=== PATIENT | female | born 1995 | race Caucasian/White ===

== ENCOUNTER 2016-12-17 10:44 | Emergency (ER) | payer MEDICAID ==
[~2016-12-17] VITALS: Ht 157.5 cm; Wt 90.9 kg
[2016-12-17 11:24] LABS: BASO % 0.6 % (0.0-2.0); EOS % 0.6 % (0-4.0); GRAN # 4.8 (1.4-6.5); GRAN % 67.4 % (42.2-75.2); HEMATOCRIT 38.4 % (37.0-47.0); HEMOGLOBIN 12.8 g/dl (12.5-16.0); LYMPH # 1.6 (1.2-3.4); LYMPH % 22.4 % (20.0-51.0); MEAN CELL VOLUME 87 fl (80.0-100.0); MEAN CORPUSCULAR HEMOGLOBIN 29 pg (27.0-31.0); MEAN CORPUSCULAR HGB CONC 33 g/dl (33.0-37.0); MEAN PLATELET VOLUME 9.8 fl (7.4-10.4); MONO # 0.6 (0.1-0.6); MONO % 8.7 % (1.7-9.3); PLATELET COUNT 298 K/mm3 (130-400); REDCELL DISTRIBUTION WIDTH-CV 12.3 % (11.5-14.5); WHITE BLOOD COUNT 7.1 K/mm3 (4.8-10.8)
[2016-12-17 11:31] LABS: ADJUSTED CALCIUM 9.1 mg/dL (8.4-10.2); ALBUMIN 4.4 gm/dL (3.5-5.0); BILIRUBIN,TOTAL 0.6 mg/dL (0.0-1.0); CALCIUM 9.4 mg/dL (8.4-10.2); CREATININE, serum 0.64 mg/dL (0.52-1.25); POTASSIUM 3.2 mmol/L (3.4-5.0)
[2016-12-17] MEDS ORDERED: PHENERGAN 25 TA25 MG PO (13:20)
[2016-12-17] MEDS ORDERED: PEPCID 20MG TAB20 MG PO (13:20)
[2016-12-17 13:44] VITALS: BP 125/73; PULSE 85; TEMP 97.9
== END 2016-12-17 14:00 | disposition home or self-care (01) ==
LOC: COL.ER 10:44
PROVIDERS: Emergency Medicine
DX: O26.891 Other specified pregnancy related conditions, first trimester (principal); O21.9 Vomiting of pregnancy, unspecified; R10.13 Epigastric pain; Z3A.00 Weeks of gestation of pregnancy not specified
CPT/HCPCS: J2550; J7030

== ENCOUNTER 2017-05-10 06:45 | Observation (INO) | payer MEDICAID ==
[~2017-05-10] VITALS: Wt 96.4 kg
[~2017-05-10 06:45] MED LIST: PEPCID 20MG TAB20 MG PO; PHENERGAN 25 TA25 MG PO
[2017-05-10 07:08] LABS: COLLECTION METHOD CLEAN CATCH
[2017-05-10 07:28] LABS: MUCOUS Present /lpf; PH 5 (5-8); SQUAMOUS EPITHELIAL 20-50 /hpf; URINE APPEARANCE Cloudy; URINE BACTERIA Rare /hpf; URINE BILIRUBIN Negative (NEGATIVE); URINE BLOOD Negative (NEGATIVE); URINE COLOR Yellow; URINE GLUCOSE Negative (NEGATIVE); URINE KETONE 1+ (NEGATIVE); URINE LEUKOCYTE ESTERASE 2+ (NEGATIVE); URINE NITRATE Negative (NEGATIVE); URINE PROTEIN(semi-quant) Negative (NEGATIVE); URINE UROBILINOGEN Negative (NEGATIVE)
[2017-05-10 07:37] LABS: HEMATOCRIT 35.3 % (37.0-47.0); HEMOGLOBIN 11.9 g/dl (12.5-16.0); MEAN CELL VOLUME 89 fl (80.0-100.0); MEAN CORPUSCULAR HEMOGLOBIN 30 pg (27.0-31.0); MEAN CORPUSCULAR HGB CONC 34 g/dl (33.0-37.0); MEAN PLATELET VOLUME 9.8 fl (7.4-10.4); PLATELET COUNT 286 K/mm3 (130-400); RED BLOOD COUNT 3.96 M/mm3 (4.10-5.30); REDCELL DISTRIBUTION WIDTH-CV 12.2 % (11.5-14.5)
[2017-05-10 07:58] LABS: ALBUMIN 3.9 gm/dL (3.5-5.0); BILIRUBIN,TOTAL 0.4 mg/dL (0.0-1.0); CALCIUM 9.1 mg/dL (8.4-10.2); CREATININE, serum 0.48 mg/dL (0.52-1.25); POTASSIUM 3.7 mmol/L (3.4-5.0); TOTAL PROTEIN 7.6 gm/dL (6.4-8.2)
[2017-05-10 08:02] LABS: BAND 38 % (0-10); LYMPHOCYTE 4 % (20.0-51.0); NEUTROPHILS 51 % (42.0-75.2); PLATELET ESTIMATE NORMAL (NORMAL)
[2017-05-10 12:00] VITALS: BP 128/72; PULSE 88; TEMP 98.7
[2017-05-10 16:30] VITALS: BP 130/60; PULSE 90; TEMP 98.7
[2017-05-10 19:15] VITALS: BP 93/48; PULSE 106; TEMP 98.8
[2017-05-10 21:00] VITALS: BP 104/53; PULSE 108; TEMP 98.6
[2017-05-11] VITALS: BP 101/50; PULSE 106; TEMP 99
[2017-05-11 04:00] VITALS: BP 98/31; PULSE 103; TEMP 99.3
[2017-05-11 07:30] VITALS: BP 106/59; PULSE 102; TEMP 99
[2017-05-11 08:37] LABS: COLLECTION METHOD CLEAN CATCH
[2017-05-11 08:47] LABS: MUCOUS Present /lpf; PH 6 (5-8); URINE APPEARANCE Hazy; URINE BACTERIA Rare /hpf; URINE BILIRUBIN Negative (NEGATIVE); URINE BLOOD Negative (NEGATIVE); URINE COLOR Yellow; URINE GLUCOSE Negative (NEGATIVE); URINE KETONE Negative (NEGATIVE); URINE LEUKOCYTE ESTERASE 2+ (NEGATIVE); URINE NITRATE Negative (NEGATIVE); URINE PROTEIN(semi-quant) Negative (NEGATIVE); URINE UROBILINOGEN Negative (NEGATIVE)
[2017-05-11 08:52] LABS: MEAN CELL VOLUME 91 fl (80.0-100.0); MEAN CORPUSCULAR HGB CONC 33 g/dl (33.0-37.0); MEAN PLATELET VOLUME 10.1 fl (7.4-10.4); PLATELET COUNT 209 K/mm3 (130-400); RED BLOOD COUNT 3.47 M/mm3 (4.10-5.30); REDCELL DISTRIBUTION WIDTH-CV 12.5 % (11.5-14.5)
[2017-05-11 08:55] LABS: HEMATOCRIT 31.4 % (37.0-47.0); HEMOGLOBIN 10.4 g/dl (12.5-16.0); MEAN CORPUSCULAR HEMOGLOBIN 30 pg (27.0-31.0)
[2017-05-11 09:02] LABS: ALBUMIN 3.1 gm/dL (3.5-5.0); BILIRUBIN,TOTAL 0.2 mg/dL (0.0-1.0); CALCIUM 8.4 mg/dL (8.4-10.2); CREATININE, serum 0.45 mg/dL (0.52-1.25); POTASSIUM 3.4 mmol/L (3.4-5.0); TOTAL PROTEIN 6.4 gm/dL (6.4-8.2)
[2017-05-11] MEDS ORDERED: AMOXICILLIN/CLA1 TA1 PO (09:44)
[2017-05-12] MEDS ORDERED: TAMIFLU 75MG75 MG PO (10:07)
== END 2017-05-11 10:50 | disposition home or self-care (01) ==
LOC: COL.ER 06:45 → OB 09:00
PROVIDERS: Physician Assistant; Student in an Organized Health Care Education/Training Program
DX: O23.02 Infections of kidney in pregnancy, second trimester (principal); O23.42 Unspecified infection of urinary tract in pregnancy, second trimester; O99.212 Obesity complicating pregnancy, second trimester; Z3A.27 27 weeks gestation of pregnancy
CPT/HCPCS: G0378; J0696; J2405; J2550; J7030; J7120

== ENCOUNTER 2017-05-12 08:43 | Emergency (ER) | payer MEDICAID ==
[~2017-05-12] VITALS: Ht 157.5 cm; Wt 96.4 kg
[~2017-05-12 08:43] MED LIST changes: +AMOXICILLIN/CLA1 TA1 PO
[2017-05-12 09:36] LABS: COLLECTION METHOD CLEAN CATCH
[2017-05-12 09:40] LABS: BASO % 0.4 % (0.0-2.0); EOS % 0.2 % (0-4.0); GRAN # 4.4 (1.4-6.5); GRAN % 80.5 % (42.2-75.2); LYMPH # 0.4 (1.2-3.4); MEAN CELL VOLUME 91 fl (80.0-100.0); MEAN CORPUSCULAR HGB CONC 33 g/dl (33.0-37.0); MEAN PLATELET VOLUME 9.9 fl (7.4-10.4); MONO # 0.6 (0.1-0.6); PLATELET COUNT 217 K/mm3 (130-400); RED BLOOD COUNT 3.44 M/mm3 (4.10-5.30); REDCELL DISTRIBUTION WIDTH-CV 12.6 % (11.5-14.5)
[2017-05-12 09:41] LABS: HEMATOCRIT 31.2 % (37.0-47.0); HEMOGLOBIN 10.3 g/dl (12.5-16.0); MEAN CORPUSCULAR HEMOGLOBIN 30 pg (27.0-31.0)
[2017-05-12 09:43] LABS: INFLUENZA A POSITIVE; INFLUENZA B NEGATIVE
[2017-05-12 09:46] LABS: MUCOUS Present /lpf; PH 6 (5-8); URINE APPEARANCE Hazy; URINE BACTERIA Rare /hpf; URINE BILIRUBIN Negative (NEGATIVE); URINE BLOOD Negative (NEGATIVE); URINE COLOR Yellow; URINE GLUCOSE Negative (NEGATIVE); URINE KETONE 1+ (NEGATIVE); URINE LEUKOCYTE ESTERASE Trace (NEGATIVE); URINE NITRATE Negative (NEGATIVE); URINE PROTEIN(semi-quant) Negative (NEGATIVE); URINE RBC 0-2 /hpf; URINE UROBILINOGEN Negative (NEGATIVE)
[2017-05-12 09:50] LABS: ALBUMIN 3.3 gm/dL (3.5-5.0); BILIRUBIN,TOTAL 0.2 mg/dL (0.0-1.0); CALCIUM 8.4 mg/dL (8.4-10.2); CREATININE, serum 0.51 mg/dL (0.52-1.25); POTASSIUM 3.2 mmol/L (3.4-5.0); TOTAL PROTEIN 6.7 gm/dL (6.4-8.2)
[2017-05-12] MEDS ORDERED: TAMIFLU 75MG75 MG PO (10:07)
[2017-05-12 11:19] VITALS: BP 104/56
[2017-05-12 12:58] VITALS: PULSE 102; TEMP 99.3
== END 2017-05-12 13:00 | disposition home or self-care (01) ==
LOC: COL.ER 08:43
PROVIDERS: Emergency Medicine
DX: O99.513 Diseases of the respiratory system complicating pregnancy, third trimester (principal); J10.1 Influenza due to other identified influenza virus with other respiratory manifestations; Z3A.28 28 weeks gestation of pregnancy
CPT/HCPCS: J2550; J7030

== ENCOUNTER 2017-06-28 18:01 | Outpatient (CLI) | payer MEDICAID ==
[~2017-06-28] VITALS: Ht 157.5 cm; Wt 96.8 kg
[~2017-06-28 18:01] MED LIST changes: +TAMIFLU 75MG75 MG PO
[2017-06-28 18:28] VITALS: BP 122/81; PULSE 112; TEMP 98.7
[2017-06-28 18:30] VITALS: BP 112/66; PULSE 108
[2017-06-28 18:45] VITALS: BP 122/81; PULSE 112; TEMP 98.7
[2017-06-28] MEDS ORDERED: PRENATAL PO (18:51)
[2017-06-28 19:24] VITALS: BP 127/78; PULSE 101
== END 2017-06-28 19:55 | disposition home or self-care (01) ==
LOC: LDRO 18:01 → LDR 18:10 → LDRO 19:55
DX: O62.9 Abnormality of forces of labor, unspecified (principal); Z3A.34 34 weeks gestation of pregnancy
CPT/HCPCS: OP

== ENCOUNTER 2017-07-26 11:53 | Inpatient (IN) | payer MEDICAID ==
[~2017-07-26] VITALS: Ht 157.5 cm; Wt 97.7 kg
[~2017-07-26 11:53] MED LIST changes: +PRENATAL PO
[2017-07-31] VITALS (33 sets, daily range): BP systolic 113–154; BP diastolic 56–93; PULSE 74–108; TEMP 98–98.3
[2017-07-31 09:27] LABS: BASO # 0.1 (0.0-0.2); BASO % 0.6 % (0.0-2.0); EOS # 0.1 (0.0-0.7); EOS % 1.7 % (0-4.0); GRAN # 5.3 (1.4-6.5); GRAN % 66.2 % (42.2-75.2); LYMPH # 1.8 (1.2-3.4); LYMPH % 21.8 % (20.0-51.0); MEAN CELL VOLUME 82 fl (80.0-100.0); MEAN CORPUSCULAR HGB CONC 32 g/dl (33.0-37.0); MEAN PLATELET VOLUME 9.9 fl (7.4-10.4); MONO # 0.7 (0.1-0.6); MONO % 9.2 % (1.7-9.3); PLATELET COUNT 227 K/mm3 (130-400); RED BLOOD COUNT 4.18 M/mm3 (4.10-5.30); REDCELL DISTRIBUTION WIDTH-CV 14.3 % (11.5-14.5)
[2017-07-31 09:28] LABS: HEMATOCRIT 34.4 % (37.0-47.0); HEMOGLOBIN 10.9 g/dl (12.5-16.0); MEAN CORPUSCULAR HEMOGLOBIN 26 pg (27.0-31.0)
[2017-08-01 05:00] VITALS: BP 105/59; PULSE 84; TEMP 98.1
[2017-08-01 07:34] VITALS: BP 133/77; PULSE 90; TEMP 98.1
[2017-08-01 16:51] VITALS: BP 130/68; PULSE 70; TEMP 97.4
[2017-08-01 22:35] VITALS: BP 123/68; PULSE 88; TEMP 98
[2017-08-02 07:15] VITALS: BP 124/67; PULSE 86; TEMP 98.5
[2017-08-02] MEDS ORDERED: PERCOCET 325 MG1 TA2 PO (07:39)
[2017-08-02] MEDS ORDERED: IBU800 M1 PO (07:39)
[2017-08-02 16:00] VITALS: BP 128/67; PULSE 102; TEMP 98.3
== END 2017-08-02 16:30 | disposition home or self-care (01) | DRG 775 ==
LOC: LDR 11:53 → OB 07-31 07:16 → LDR 07-31 15:35 → OB 07-31 18:30 → LDR 08-01 12:57 → OB 08-02 16:30
PROVIDERS: Student in an Organized Health Care Education/Training Program
PROC: 10E0XZZ Delivery of Products of Conception, External Approach (ICD-10-PCS; principal; 2017-07-31)
PROC: 0KQM0ZZ Repair Perineum Muscle, Open Approach (ICD-10-PCS; 2017-07-31)
PROC: 3E033VJ Introduction of Other Hormone into Peripheral Vein, Percutaneous Approach (ICD-10-PCS; 2017-07-31)
DX: O70.1 Second degree perineal laceration during delivery (principal); O69.2XX0 Labor and delivery complicated by other cord entanglement, with compression, not applicable or unspecified; Z3A.39 39 weeks gestation of pregnancy; Z37.0 Single live birth
CPT/HCPCS: J2590; J2795; J7120

== ENCOUNTER → 2020-07-20 | Outpatient (CLI) | payer MEDICAID ==
[~2020-07-20] VITALS: Ht 157.5 cm; Wt 99.3 kg
[~2020-07-20] MED LIST changes: +DITROPAN 5MG TAB5 MG PO; +FLEXERIL 1010 MG/TAB PO; +IBU800 M1 PO; +MOBIC 7.5MG7.5 MG PO; +PERCOCET 325 MG1 TA2 PO; +ULTRAM 50MG TAB50 MG PO
[2020-07-20 12:05] VITALS: BP 136/78; PULSE 100
[2020-07-20 13:05] VITALS: BP 133/81; PULSE 90
== END ==
LOC: COL.RAD 11:51
DX: M51.26 Other intervertebral disc displacement, lumbar region (principal)
CPT/HCPCS: J3301